=== PATIENT | female | born 1950 | race Caucasian/White ===

== ENCOUNTER 2024-08-13 10:10 | Emergency (ER) | payer MEDICARE, OTHER, SELFPAY ==
[2024-08-13] VITALS (15 sets, daily range): BP systolic 179–221; BP diastolic 86–104; PULSE 74–112; RESP 14–33; TEMP 36.6; O2SAT 98–100; BMI 20.2
--- NOTE | 2024-08-13 10:16 | DI.RAD.S_ITS ---
PROCEDURE: XR CHEST 1V INDICATIONS: chest pain TECHNIQUE: One view of the chest was acquired. COMPARISON: None. FINDINGS: Surgical changes and devices: None. Lungs and pleura: Lungs are clear. No pleural effusions or pneumothorax. Mediastinum: Mediastinal contours appear normal. Heart size is normal. Bones and chest wall: No suspicious bony lesions. Overlying soft tissues appear unremarkable. IMPRESSION: No acute cardiopulmonary pathology. Dictated by: Martin Rizo M.D. on 08/13/2024 at 10:46 Approved by: Martin Rizo M.D. on 08/13/2024 at 10:46
--- NOTE | 2024-08-13 10:16 | EKG_ITS ---
[address] [address] Test Date: 2024-08-13 Pat Name: Odalis Del Cid Department: Room: Gender: Female Digital Assistant: LISSY : 1950 Requested By: Order Number: [id number] Reading MD: Amarjit Simmons MD Measurements Intervals [place] Rate: 92 P: 79 DC: 142 QRS: 18 QRSD: 98 T: 42 QT: 376 QTc: 464 Interpretive Statements Normal sinus rhythm Incomplete right bundle branch block NO PRIOR TRACING Electronically Signed On 08-13-2024 12:04:34 PDT by Amarjit Simmons MD
[2024-08-13 10:42] LABS: Add Manual Diff / Slide Review NO; Basophils Absolute Auto 100 /uL (0-100); Basophils Percent Auto 0.7 % (0-2); Eosinophils Absolute Auto 0 /uL (0-450); Eosinophils Percent Auto 0.1 % (2-4); Hematocrit 44.7 % (36-46); Lymphocytes Absolute Auto 1400 /uL (1100-4500); Lymphocytes Percent Auto 15.1 % (25-40); Mean Corpuscular HGB Conc 33.5 % (30-36); Mean Corpuscular Hemoglobin 30.7 PG (26-34); Mean Corpuscular Volume 91.6 fL (80-100); Monocytes Absolute Auto 800 /uL (0-900); Neutrophils Absolute Auto 7300 /uL (1500-7000); Neutrophils Percent Auto 76.1 % (50-75); Platelet Count 334 X10^3/uL (150-400); Red Blood Cell Count 4.88 X10^6/uL (4.0-5.2); Red Cell Distribution Width 13.6 % (11.6-14.8); White Blood Cell Count 9.6 X10^3/uL (4.5-11.0)
[2024-08-13 10:43] LABS: Alanine Aminotransferase 18 IU/L (<35); Albumin 4.9 g/dL (3.5-5.0); Albumin Globulin Ratio 1.3 (1.0-2.8); Alkaline Phosphatase 73 U/L (38-126); Aspartate Aminotransferase 35 IU/L (14-36); BUN Creatinine Ratio 25.6 (6-22); Bilirubin Total 0.9 mg/dL (0.2-1.3); Blood Urea Nitrogen 20 mg/dL (7-17); Calcium 9.9 mg/dL (8.4-10.2); Carbon Dioxide 20 mmol/L (22-32); Chloride 103 mmol/L (98-107); Creatine Kinase 105 U/L (30-135); Estimated Glomerular Filt Rate > 60 mL/min (>60); Globulin 3.9 g/dL (1.7-4.1); Glucose 114 mg/dL (80-110); Lipase 102 U/L (23-300); Magnesium 1.9 mg/dL (1.6-2.3); Potassium 3.8 mmol/L (3.4-5.1); Sodium 134 mmol/L (137-145); Total Protein 8.8 g/dL (6.3-8.2)
[2024-08-13 10:44] LABS: HEMOLYSIS 85 (0-50); PTT Partial Thromboplastin Tim 30 SECONDS (25.1-36.5)
[2024-08-13 10:55] LABS: NT-proBNP (BNP-Adult 18+) 1110 pg/mL (<125); Troponin I < 0.012 ng/mL (0.01-0.034)
--- NOTE | 2024-08-13 11:20 | ED.CHESTPAIN ---
HPI - Chest Pain General Chief Complaint: Chest Pain Stated Complaint: sent from [facility] [place] pain in back and heaviness in chest Time Seen by Provider: 08/13/24 11:20 Source: patient Mode of arrival: Ambulatory Limitations: no limitations History of Present Illness HPI narrative: Patient is a 73-year-old female with no known medical problems has not seen a provider in 3 years presenting today with bilateral back pain. She reports that she has had some back and bilateral shoulder pain for couple of days. She seems to be having some bilateral flank pain it has not radiating around her abdomen she has not short of breath no nausea or vomiting. She thinks maybe sometimes she has some epigastric pain but does not really describe it as any sort of chest discomfort. She has no shortness of breath with exertion no fever or chills. No painful frequent urination. She does not remember any injury some times her discomfort is worse with movement and sometimes it is not. It has not necessarily reproducible with position or palpation Related Data Previous Rx's Medication Instructions Recorded cephalexin 500 mg capsule 500 mg PO BID 5 days #10 caps 08/13/24 Allergies Allergy/AdvReac Type Severity Reaction Status Date / Time No Known Drug Allergies Allergy Unverified 08/01/20 10:39 Patient History Medical History Elevated blood pressure reading Chicken pox Surgical History Anesthesia History of knee surgery (~2005) Family History Father COPD (chronic obstructive pulmonary disease) Mother Hypertension Social History Smoking Status: Never smoker Smoking Status: Never smoker alcohol intake frequency: holidays/special occasions only Substance Use Type: does not use Exam Initial Vital Signs Initial Vital Signs: Vital Signs Temperature 97.9 F 08/13/24 10:11 Pulse Rate 110 H 08/13/24 10:11 Respiratory Rate 14 08/13/24 10:11 Blood Pressure 215/104 H 08/13/24 10:11 Pulse Oximetry 100 08/13/24 10:11 Oxygen Delivery Method Room Air 08/13/24 10:11 GENERAL: Alert well-appearing and in no acute distress. HEENT: Head atraumatic,EOMI, pupils reactive, face symmetric, moist mucous membranes CARDIOVASCULAR: Regular rate and rhythm without murmurs, rubs or gallops. RESPIRATORY: Breath sounds equal bilaterally, no wheezes rales or rhonchi. ABDOMEN: Soft, nontender. Normoactive bowel sounds all 4 quadrants. No guarding or rebound. No epigastric pain : Mild bilateral CVA tenderness EXTREMITIES: Normal range of motion, no clubbing or edema. Neurovascularly intact NEUROLOGICAL: Alert and oriented x4.Normal gait and speech. SKIN: Warm, dry, no laceration, no petechiae, no rashes or lesions. Course Orders Ordered: ED Orders 08/13/24 10:16 XR chest 1V Stat EKG-12 Lead Stat 08/13/24 10:23 Complete Blood Count AUTO DIFF Stat Comprehensive Metabolic Panel Stat D Dimer Stat Lipase Stat Magnesium Stat NT-proBNP (BNP-Adult 18+) Stat PTT Partial Thromboplastin Peter Stat Prothrombin Time INR Stat Troponin & CK Cardiac Panel Stat 08/13/24 11:31 Urine Culture Stat Urine Culture Stat Urine Microscopic Stat 08/13/24 12:39 Trop I [Troponin I] Stat 08/13/24 13:28 CT kidney ureter bladder (KUB) Stat Discontinued Medications Aspirin (Aspirin 81 Mg Chew Tab) 324 mg PO NOW ONE Stop: 08/13/24 10:17 Last Admin: 08/13/24 12:40 Dose: Not Given Documented By: RAHEEM Ketorolac Tromethamine (Ketorolac 30 Mg/Ml Vial) 15 mg IV NOW ONE Stop: 08/13/24 13:32 Last Admin: 08/13/24 13:42 Dose: 15 mg Documented By: RAHEME Vital Signs Vital signs: Vital Signs - 8 hr 08/13/24 11:00 08/13/24 11:00 08/13/24 11:32 Pulse Rate 74 88 Respiratory Rate 33 H 27 H Blood Pressure 188/91 H Pulse Oximetry 100 99 08/13/24 11:33 08/13/24 11:33 08/13/24 12:00 Pulse Rate 84 Respiratory Rate 15 Blood Pressure 207/97 H 179/86 H Pulse Oximetry 99 08/13/24 12:00 08/13/24 12:30 08/13/24 12:30 Pulse Rate 78 83 Respiratory Rate 20 22 Blood Pressure 189/93 H Pulse Oximetry 100 100 08/13/24 13:00 08/13/24 13:00 08/13/24 13:30 Pulse Rate 74 Respiratory Rate 24 Blood Pressure 208/97 H 215/100 H Pulse Oximetry 99 08/13/24 13:30 08/13/24 14:00 08/13/24 14:00 Pulse Rate 76 76 Respiratory Rate 23 16 Blood Pressure 214/98 H Pulse Oximetry 99 100 08/13/24 14:21 08/13/24 14:21 08/13/24 14:30 Pulse Rate 82 79 Respiratory Rate 18 32 H Blood Pressure 221/99 H Pulse Oximetry 98 98 08/13/24 15:00 Pulse Rate 86 Respiratory Rate 23 Blood Pressure Pulse Oximetry 99 MDM - Chest Pain Lab Data 08/13/24 10:23 08/13/24 10:23 Labs: Lab Results 08/13/24 08/13/24 08/13/24 Range/Units 10:23 11:31 12:39 WBC 9.6 (4.5-11.0) X10^3/uL RBC 4.88 (4.0-5.2) X10^6/uL Hgb 15.0 (12.0-16.0) g/dL Hct 44.7 (36-46) % MCV 91.6 (80-100) fL MCH 30.7 (26-34) PG MCHC 33.5 (30-36) % RDW 13.6 (11.6-14.8) % Plt Count 334 (150-400) X10^3/uL Neut % (Auto) 76.1 H (50-75) % Lymph % (Auto) 15.1 L (25-40) % [place] % (Auto) 8.0 (3-14) % Eos % (Auto) 0.1 L (2-4) % Baso % (Auto) 0.7 (0-2) % Neut # (Auto) 7300 H (8214-4448) /uL Lymph # (Auto) 1400 (4601-6388) /uL [place] # (Auto) 800 (0-900) /uL Eos # (Auto) 0 (0-450) /uL Baso # (Auto) 100 (0-100) /uL PT 11.0 (9.4-12.5) SECONDS INR 1.0 (0.9-1.3) APTT 30 (25.1-36.5) SECONDS D-Dimer 410 (<500) ng/ml Sodium 134 L (137-145) mmol/L Potassium 3.8 (3.4-5.1) mmol/L Chloride 103 (98-107) mmol/L Carbon Dioxide 20 L (22-32) mmol/L BUN 20 H (7-17) mg/dL Creatinine 0.78 (0.52-1.04) mg/dL Estimated GFR > 60 (>60) mL/min BUN/Creatinine Ratio 25.6 H (6-22) Glucose 114 H (80-110) mg/dL Calcium 9.9 (8.4-10.2) mg/dL Magnesium 1.9 (1.6-2.3) mg/dL Total Bilirubin 0.9 (0.2-1.3) mg/dL AST 35 (14-36) IU/L ALT 18 (<35) IU/L Alkaline Phosphatase 73 (38-126) U/L Total Creatine Kinase 105 (30-135) U/L Troponin I < 0.012 < 0.012 (0.01-0.034) ng/mL NT-Pro-B Natriuret Pep 1110 H (<125) pg/mL Total Protein 8.8 H (6.3-8.2) g/dL Albumin 4.9 (3.5-5.0) g/dL Globulin 3.9 (1.7-4.1) g/dL Albumin/Globulin Ratio 1.3 (1.0-2.8) Lipase 102 (23-300) U/L Urine RBC 1-5/hpf (0-5/HPF) Urine WBC 1-5/hpf (0-5/HPF) Ur Squamous Epith Cells 1-5 /hpf (0-5/HPF) Urine Bacteria Moderate (10-30) H (None) Ur Culture Indicated? Specimen cultured Vol Urine Centrifuged 10ml (spun) Urine Dip Bedside Urine Glucose Negative Bedside Urine Bilirubin - Negative Bedside Urine Ketone + 15 Urine Specific [place] 1.015 Bedside Urine Occult Blood ++ Bedside Urine pH 7.0 Bedside Urine Protein - Negative Bedside Urine Urobilinogen - Negative Bedside Urine Nitrite - Negative Bedside Urine Leukocytes - Negative Esterase Imaging Data Chest x-ray: Radiologist's Impression: PROCEDURE: XR CHEST 1V INDICATIONS: chest pain TECHNIQUE: One view of the chest was acquired. COMPARISON: None. FINDINGS: Surgical changes and devices: None. Lungs and pleura: Lungs are clear. No pleural effusions or pneumothorax. Mediastinum: Mediastinal contours appear normal. Heart size is normal. Bones and chest wall: No suspicious bony lesions. Overlying soft tissues appear unremarkable. IMPRESSION: No acute cardiopulmonary pathology. Dictated by: Martin Rizo M.D. on 08/13/2024 at 10:46 CT scan - abdomen/pelvis: Radiologist's Impression: PROCEDURE: CT KIDNEY URETER BLADDER (KUB) INDICATIONS: left flank pain TECHNIQUE: Axial sections were acquired from the lung bases to the pubic symphysis. Coronal and sagittal reformats were performed. For radiation dose reduction, the following was used: automated exposure control, adjustment of mA and/or kV according to patient size. COMPARISON: None. FINDINGS: Image quality: Diagnostic. Lower Chest: No significant findings. URINARY: Right Kidney: No stones or hydronephrosis. Right Ureter: No hydroureter. Left Kidney: No stones or hydronephrosis. Left Ureter: No hydroureter. Bladder: Normal wall thickness. No stones. ABDOMEN: Liver: No contour-deforming solid mass. Well-circumscribed fluid density area within left hepatic lobe is seen measures 7 millimeter in size. Gallbladder: No radiopaque gallstones or wall thickening. Biliary ducts: No biliary dilation. Pancreas: No ductal dilation. Spleen: Size is within normal limits. Adrenal Glands: No adrenal nodules. Stomach and Bowel: Normal colonic caliber, without significant wall thickening. No evidence of acute appendicitis. [id number] fecal stasis in the colon is seen. Sigmoid diverticulosis without CT evidence of acute diverticulitis. No abscess collection. Peritoneum: No abnormal intraperitoneal fluid. No free air. Ventral Wall: No hernia. Abdominal Nodes: No enlarged retroperitoneal or mesenteric lymph nodes. Vessels: Aorta and inferior vena cava are normal in size. PELVIS: Pelvic Organs: 1.9 x 1.7 cm left ovarian cyst is seen. Uterus and right ovary show no gross abnormality.. Pelvic Nodes: Unremarkable. Miscellaneous: No inguinal hernias are seen. Bones: No aggressive appearing bony lesions. Chronic appearing anterior wedge compression deformity at L2 and L3 levels as well as T12 level are seen. IMPRESSION: 1. No obstructing renal stones or hydronephrosis. No hydroureter. Normal appearing urinary bladder. 2. Mild constipation. No bowel obstruction. No evidence of acute appendicitis. Sigmoid diverticulosis without CT evidence of acute diverticulitis. No free fluid or free air. 3. Chronic appearing anterior wedge compression deformities at T12, L1 and L2 levels. No definite acute vertebral body compression fracture. Dictated by: Martin Rizo M.D. on 08/13/2024 at 14:36 Approved by: Martin Rizo M.D. on 08/13/2024 at 14:40 ECG Data Attestation: I personally reviewed and interpreted this ECG as follows: Interpretation: Normal sinus rhythm rate 92 TX interval 142 QRS 98 QTC 464 no S-wave no T-wave inversion MDM Narrative Medical decision making narrative: MDM CC: Back pain Complicating co-morbidities: Noncompliant with medical care Medical records reviewed: PCP no reviewed from 08/01/2020, show to be hypertensive at clinic of 188/104, she had an initial establish care appointment however she was not interested in preventative wellness including mammogram DEXA colonoscopy vaccines and fit testing. She was encouraged to monitor and log her blood pressure which she has not. Differential considered: Muscle spasm back sprain nephrolithiasis dissection acute coronary syndrome Exam documented above, pertinent findings include: Bilateral flank pain not reproducible with palpation no pain with moving shoulders or arms abdomen is soft nontender no peripheral edema Lab Test results independently reviewed as above. Pertinent findings: BNP 1100 Urinalysis positive for bacteria Some hematuria Independently reviewed EKG as above no acute ischemia Imaging studies independently reviewed: CT KUB showed chronic appearing compression fractures but no nephrolithiasis Chest x-ray was unremarkable Consultations: None Treatments: Toradol and aspirin Re-evaluations: 1330 re-evaluation she is having more left-sided flank pain with hematuria possible nephrolithiasis. She is chronic hypertension untreated, dissection is considered but she has a negative D-dimer. I think unlikely her pain did improve with some Toradol Discussion: Year old female with probable uncontrolled hypertension presenting today with bilateral pain. She denies any injury sometimes it is positional sometimes it is reproducible but not always. During the ED stay she became on the left side kind of radiating to her front. CT KUB did not show any nephrolithiasis. She does have mild bacteriuria with some hematuria. Possible UTI and pyelo. Although she does not have fever chills or leukocytosis Discharge Plan Departure Patient Disposition: Home Clinical Impression: Acute pyelonephritis Instructions: DI for Kidney Infection Activity Restrictions/Additional Instructions: *You have been diagnosed with kidney infection *What to do: At this time we will go ahead and treat you for kidney infection TX interval your blood work looks good. No evidence of kidney stones. I do recommend that you get your blood pressure under control. You will need to establish care with a primary care provider. You also need an ultrasound of your heart. *Continue to take medications as directed Keflex 500 mg twice a day for 5 days *Follow up with your primary care provider in 2-3 days or call [phone] *Return to ER if you should have increasing back pain chest pain shortness of fever confusion or any new, worsening or concerning symptoms Prescriptions: New cephalexin 500 mg capsule 500 mg PO BID 5 Days Qty: 10 0RF Referrals: Chloe Otero ARNP [Primary Care Provider] - Stand Alone Forms: Patient Portal/API
[2024-08-13 11:47] LABS: D Dimer 410 ng/ml (<500)
[2024-08-13 12:24] LABS: Urine Volume 10mL (spun)
[2024-08-13 12:29] LABS: Bacteria Urine Moderate (10-30); Culture Indicated Urine Specimen Cultured; RBC Urine 1-5/HPF (0-5/HPF); Squamous Epithelial Cell Urine 1-5 /HPF (0-5/HPF); WBC Urine 1-5/HPF (0-5/HPF)
[2024-08-13 13:20] LABS: Troponin I < 0.012 ng/mL (0.01-0.034)
--- NOTE | 2024-08-13 13:28 | DI.CT.S_ITS ---
PROCEDURE: CT KIDNEY URETER BLADDER (KUB) INDICATIONS: left flank pain TECHNIQUE: Axial sections were acquired from the lung bases to the pubic symphysis. Coronal and sagittal reformats were performed. For radiation dose reduction, the following was used: automated exposure control, adjustment of mA and/or kV according to patient size. COMPARISON: None. FINDINGS: Image quality: Diagnostic. Lower Chest: No significant findings. URINARY: Right Kidney: No stones or hydronephrosis. Right Ureter: No hydroureter. Left Kidney: No stones or hydronephrosis. Left Ureter: No hydroureter. Bladder: Normal wall thickness. No stones. ABDOMEN: Liver: No contour-deforming solid mass. Well-circumscribed fluid density area within left hepatic lobe is seen measures 7 millimeter in size. Gallbladder: No radiopaque gallstones or wall thickening. Biliary ducts: No biliary dilation. Pancreas: No ductal dilation. Spleen: Size is within normal limits. Adrenal Glands: No adrenal nodules. Stomach and Bowel: Normal colonic caliber, without significant wall thickening. No evidence of acute appendicitis. [id number] fecal stasis in the colon is seen. Sigmoid diverticulosis without CT evidence of acute diverticulitis. No abscess collection. Peritoneum: No abnormal intraperitoneal fluid. No free air. Ventral Wall: No hernia. Abdominal Nodes: No enlarged retroperitoneal or mesenteric lymph nodes. Vessels: Aorta and inferior vena cava are normal in size. PELVIS: Pelvic Organs: 1.9 x 1.7 cm left ovarian cyst is seen. Uterus and right ovary show no gross abnormality.. Pelvic Nodes: Unremarkable. Miscellaneous: No inguinal hernias are seen. Bones: No aggressive appearing bony lesions. Chronic appearing anterior wedge compression deformity at L2 and L3 levels as well as T12 level are seen. IMPRESSION: 1. No obstructing renal stones or hydronephrosis. No hydroureter. Normal appearing urinary bladder. 2. Mild constipation. No bowel obstruction. No evidence of acute appendicitis. Sigmoid diverticulosis without CT evidence of acute diverticulitis. No free fluid or free air. 3. Chronic appearing anterior wedge compression deformities at T12, L1 and L2 levels. No definite acute vertebral body compression fracture. Dictated by: Martin Rizo M.D. on 08/13/2024 at 14:36 Approved by: Martin Rizo M.D. on 08/13/2024 at 14:40
[2024-08-13] MEDS: KETOROLAC 30 MG/ML VIAL 15 MG IV (13:42)
== END 2024-08-13 15:09 | disposition home or self-care (01) ==
PROVIDERS: Emergency Provider Emergency Medicine; PCP Nurse Practitioner
DX: N10 Acute pyelonephritis (principal); I10 Essential (primary) hypertension; R07.9 Chest pain, unspecified; R10.13 Epigastric pain
CPT/HCPCS: 36415; 71045; 74176; 80053; 81003; 81015; 82550; 83690; 83735; 83880; 84484; 85025; 85379; 85610; 85730; 87086; 93005; 93010; 96374; 99284; J1885

== ENCOUNTER → 2024-10-26 08:05 | Outpatient (CLI) | payer MEDICARE, OTHER, SELFPAY ==
--- NOTE | 2024-10-26 08:06 | DI.ECHO.S_ITS ---
[facility]+ [facility] : : [address] : : [place] : : [id number] : : Phone: [phone] Echocardiogram Report + + :Name: LISS MARIE Study Date: 10/26/2024 Height: 59 in : :[facility] ReadingLocation: Weight: 100 lb : : Gender: Female BSA: 1.4 m2 : :: 1950 Age: 73 yrs BP: 178/91 mmHg: :Reason For Study: ELEVATED BNP : :Ordering Physician: SATINDER, : :KASHIF Performed By: Lyndsey Han : :Referring: KASHIF RAJAN : + + Interpretation Summary 1. The left ventricle contractility is borderline. Estimate ejection fraction is 50 to 55% with no segmental wall motion abnormalities. No LVH. Unable to comment on diastolic function. 2. The right ventricular contractility is normal. 3. All cardiac chambers are of normal size. 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 4. Trace to mild mitral regurgitation. 5. No obvious intracardiac shunts. 6. No obvious intracardiac masses nor thrombi. 7. No hemodynamically significant pericardial effusion. 8. Low right-sided filling pressures. Conclusion: Low normal left ventricular systolic function with no significant valvular abnormalities. Procedure: A two-dimensional transthoracic echocardiogram with color flow and Doppler was performed. The study quality was technically adequate. There is no prior echocardiogram noted for this patient. The patient was in sinus bradycardia with heart rates between 59-68 bpm during the exam. Left Ventricle: The left ventricle is normal in size. There is normal left ventricular wall thickness. The ejection fraction is estimated to be 50-55%. Right Ventricle: The right ventricle is normal in size and function. Atria: The left atrial size is normal. Right atrial size is normal. The atrial septum is aneurysmal. Mitral Valve: The mitral valve leaflets appear mildly thickened, but open well. There is no evidence of stenosis, fluttering, or prolapse. There is no mitral valve stenosis. There is mild mitral regurgitation. Aortic Valve: The aortic valve is trileaflet. The aortic valve opens well. There is no aortic valve stenosis. No aortic regurgitation is present. Tricuspid Valve: The tricuspid valve leaflets are thin and pliable. There is trace tricuspid regurgitation. The right ventricular systolic pressure is estimated to be at least 20 mmHg based on an estimated right atrial pressure of 3 mm Hg. Pulmonic Valve: The pulmonic valve is not well visualized. There is trace pulmonic regurgitation. Great Vessels: The aortic root is normal size. The dimensions of the ascending aorta are normal. The IVC is of normal diameter and collapses greater than 50% with a sniff. This suggests a low right atrial pressure of 3 mm Hg. Pericardium/ Pleura There is no pericardial effusion. There is no pleural effusion. MMode/2D Measurements & Calculations LVIDd: 4.0 cm LVOT diam: 1.9 cm LVIDs: 2.7 cm Ao root diam: 3.2 cm FS: 32.5 % asc Aorta Diam: 2.9 cm IVSd: 0.68 cm Ao Arch Diam (Prox Trans): 2.6 cm LVPWd: 0.59 cm LV vazquez. diameter/BSA (cm/m^2): 2.9 LV sys. diameter/BSA (cm/m^2): 1.9 LA A2 area: 12.2 cm2 RA long axis: 4.9 cm LA A4 area: 13.9 cm2 RA area: 14.9 cm2 LA length (vol): 4.8 cm RA vol: 38.0 ml LA vol: 30.3 ml RA : 27.7 ml/m2 LA vol index: 22.1 ml/m2 IVC diam: 1.2 cm RVD1 (basal): 3.7 cm RVD2 (mid): 2.8 cm TAPSE: 1.8 cm Doppler Measurements & Calculations Ao V2 max: 100.8 cm/sec LVOT Max Carroll: 85.1 cm/sec Ao V2 mean: 66.6 cm/sec LV V1 max P.9 mmHg Ao max P.1 mmHg LV V1 VTI: 18.3 cm Ao mean P.0 mmHg CHRISTOPHER(I,D): 2.3 cm2 Ao V2 VTI: 21.5 cm CHRISTOPHER(V,D): 2.3 cm2 sev ratio: 0.85 CHRISTOPHER indexed to BSA (cm^2/m^2): 1.7 MV E max carroll: 44.3 cm/sec TR max carroll: 207.7 cm/sec MV A max carroll: 56.2 cm/sec TR max P.3 mmHg MV E/A: 0.79 PA V2 max: 82.6 cm/sec Med Peak E' Carroll: 5.8 cm/sec PA V2 mean: 63.2 cm/sec E/E' med: 7.7 PA mean P.7 mmHg Lat Peak E' Carroll: 10.6 cm/sec PA pr(Accel): 46.5 mmHg E/E' lat: 4.2 E/e' average: 5.9 MV dec time: 0.30 sec SV(LVOT): 50.0 ml Reading Physician:
== END ==
PROVIDERS: PCP Family Medicine; Referring Provider Family Medicine; Visit Provider Family Medicine
DX: I10 Essential (primary) hypertension (principal); R79.89 Other specified abnormal findings of blood chemistry; I34.0 Nonrheumatic mitral (valve) insufficiency
CPT/HCPCS: 93306